=== PATIENT | female | born 1970 | race Hispanic/Latino ===

== ENCOUNTER 2019-07-13 03:28 | Emergency (ER) | payer OTHER ==
[2019-07-13 03:54] LABS: HCG,QUAL RESULT NEGATIVE (NEGATIVE)
[2019-07-13 03:55] LABS: APPEARANCE,URINE Clear (CLEAR); BILIRUBIN,URINE Negative (NEGATIVE); COLOR,URINE Yellow (YELLOW); GLUCOSE, URINE (UA) Negative (NEGATIVE); KETONES,URINE Negative (NEGATIVE); LEUKOCYTE ESTERASE ,URINE Negative (NEGATIVE); NITRATE,URINE Negative (NEGATIVE); OCCULT BLOOD,URINE Trace (NEGATIVE); PROTEIN,URINE Negative (NEGATIVE); UROBILINOGEN,URINE 0.2 mg/dL (0.2-1.0)
[2019-07-13 04:05] LABS: BACTERIA,URINE None Seen /HPF (None Seen); RBC,URINE 0-1 /HPF (0-1); WBC,URINE None Seen /HPF (0-1)
[2019-07-13 04:06] LABS: SQUAMOUS EPITHELIAL CELL,UR Rare /HPF (0-2)
[2019-07-13] MEDS ORDERED: ONDANSETRON HCL 4 MG/2 ML VIAL ONE (04:15)
[2019-07-13 04:16] LABS: BASOPHILS % (AUTO) 0.3 % (0.0-5.0); EOSINOPHILS % (AUTO) 1.1 % (0.0-8.0); HEMATOCRIT 38.1 % (36-48); LYMPHOCYTES % (AUTO) 24.3 % (21.0-51.0); MEAN CORPUSCULAR HEMOGLOBIN 27.2 pg (27.0-33.0); MEAN CORPUSCULAR HGB CONC 32.3 g/dL (32.0-36.0); MEAN CORPUSCULAR VOLUME 84.3 fL (79-99); MONOCYTES % (AUTO) 6.3 % (3.0-13.0); NEUTROPHILS % (AUTO) 67.6 % (40.0-77.0); PLATELET COUNT (AUTO) 314 K/uL (130-400); RED BLOOD CELL COUNT(AUTO) 4.52 MIL/uL (4.00-5.50); RED CELL DISTRIBUTION WIDTH 15.9 % (11.0-15.5); WHITE BLOOD COUNT (AUTO) 9.4 K/uL (4.8-10.8)
[2019-07-13] MEDS ORDERED: SODIUM CHLORIDE 0.9% 1000ML 1,000 ML IV ONE (04:16)
[2019-07-13] MEDS ORDERED: FAMOTIDINE/PF 20 MG/2 ML VIAL IV ONE (04:16)
[2019-07-13 04:29] LABS: CREATININE 0.8 mg/dL (0.5-1.5); POTASSIUM 3.9 mmol/L (3.5-5.1)
[2019-07-13 04:33] LABS: ALBUMIN 3.5 g/dL (3.5-5.0); BILIRUBIN,TOTAL 0.4 mg/dL (0.2-1.0); TOTAL PROTEIN, SERUM 7.8 g/dL (6.0-8.3)
[2019-07-13] MEDS ORDERED: METOCLOPRAMIDE 10 MG/2 ML VIAL ONE (05:42)
[2019-07-13] MEDS ORDERED: DiphenhydrAMINE HCL 50 MG/ML VIAL ONE (05:42)
[2019-07-13] MEDS ORDERED: MAG HYDROX/AL HYDROX/SIMETH ES 30 ML SUSP UDCUP ONE (05:42)
[2019-07-13] MEDS ORDERED: LIDOCAINE HCL 2% VISCOUS 15 ML UDCUP ONE (05:42)
== END 2019-07-13 06:11 | disposition home or self-care (01) ==
LOC: EDH 03:28
DX: K80.20 Calculus of gallbladder without cholecystitis without obstruction (principal); K29.70 Gastritis, unspecified, without bleeding
CPT/HCPCS: 36415; 76705; 80053; 81001; 81025; 83690; 85025; 96361; 96374; 96375; 99285; J1200; J2405; J2765; J3490; J7030

== ENCOUNTER → 2022-02-15 | Outpatient (CLI) | payer MEDICAID | END | disposition home or self-care (01) | LOC: SHCH 15:33 | PROVIDERS: ATTEND Internal Medicine Cardiovascular Disease | DX: I08.0 Rheumatic disorders of both mitral and aortic valves (principal) | CPT/HCPCS: 93306 ==

== ENCOUNTER 2022-12-16 21:43 | Emergency (ER) | payer OTHER ==
[~2022-12-16] VITALS: Ht 157.5 cm; Wt 72.6 kg
[2022-12-17] MEDS ORDERED: IBUP-1493 PO (00:26)
[2022-12-17] MEDS ORDERED: CYCL-309 PO (00:26)
[2022-12-17 00:28] VITALS: BP 142/74
== END 2022-12-17 00:33 | disposition home or self-care (01) ==
LOC: EDH 21:43
DX: M54.2 Cervicalgia (principal); V89.2XXA Person injured in unspecified motor-vehicle accident, traffic, initial encounter; Y93.89 Activity, other specified; Y92.89 Other specified places as the place of occurrence of the external cause; Y99.8 Other external cause status
CPT/HCPCS: 71045; 72125; 84484; 93005

== ENCOUNTER 2024-12-09 17:51 | Emergency (ER) | payer BC ==
[~2024-12-09] VITALS: Ht 154.9 cm; Wt 90.7 kg
[~2024-12-09 17:51] MED LIST: CYCL-309 PO; IBUP-1493 PO
--- NOTE | 2024-12-09 18:05 | ERN ---
ED Note History of Present Illness Stated Complaint: OTHER Chief Complaint: Skin Rash/Abscess Time Seen by MD: 17:57 Time Seen by Midlevel: 18:00 Dictation: Ms. Cole is a 54 year old female with no reported chronic health issues who presented to the Emergency Department this evening for evaluation of rash. Sh ereports nonblanching purpuric rash to bilateral upper and lower extremities x 1 week. She states that she saw her PCP, Dr. Noe Nicholas, on Monday and had some lab tests performed at [facility]; results pending. She states she called her PCP's office today because she was experiencing dizziness/lightheadedness. She states that she was unable to get a hold of anyone in the office. She also complains of pain, warmth, and increased redness to an area right lower leg/ankle. She has no open wound/drainage. She denies fever, chills, shortness of breath, cough, chest pain, palpitations, edema, abdominal pain, nausea, vomiting, hematemesis, constipation, diarrhea, melena, hematochezia, dysuria, headache, neck stiffness, visions changes, or focal weakness/paresthesia Allergies: Coded Allergies: No Known Drug Allergies (Unverified Allergy, Unknown, 07/13/19) Home Meds Active Scripts Cephalexin (Cephalexin) 500 Mg Tablet, 1 TAB PO BID for 7 Days, #14 TAB 0 Refills Prov:BING MENEZES NP 12/09/24 Cyclobenzaprine HCl (Cyclobenzaprine HCl) 10 Mg Tablet, 10 MG PO TIDP PRN for PAIN, #30 TAB Prov:GONZALEZ RODRIGUEZ MD 12/17/22 Ibuprofen (Motrin/Advil) 800 Mg Tab, 800 MG PO TID, #30 TAB Prov:GONZALEZ RODRIGUEZ MD 12/17/22 Past Medical History Past Medical History: No Pertinent History Surgical History: None PSYCH History: no pertinent psych hx Family History: Negative Social History: Negative, Lives with family History: Not Applicable RN Note Reviewed/Agreed w/PFSH: Yes Review of System Dictation REVIEW OF SYSTEMS: CONSTITUTIONAL: Patient denies fevers, chills, sweats and weight changes. EYES: Patient denies any visual symptoms. EARS, NOSE, AND THROAT: No difficulties with hearing. No symptoms of rhinitis or sore throat. CARDIOVASCULAR: Patient denies chest pains, palpitations, orthopnea and paroxysmal nocturnal dyspnea. RESPIRATORY: No dyspnea on exertion, no wheezing or cough. GI: No nausea, vomiting, diarrhea, constipation, abdominal pain, hematochezia or melena. : No urinary hesitancy or dribbling. No nocturia or urinary frequency. No abnormal urethral discharge. MUSCULOSKELETAL: No myalgias or arthralgias. NEUROLOGIC: No chronic headaches, no seizures. Patient denies numbness, tingling or weakness. Reports dizziness/lightheadedness. She denies stiff neck, vision changes, photophobia PSYCHIATRIC: Patient denies problems with mood disturbance. No problems with anxiety. ENDOCRINE: No excessive urination or excessive thirst. DERMATOLOGIC: Reports non raised, red, spotty" rash to bilateral upper and lo wer extremities x1 week. She now reports larger of redness to right lower leg/ankle which is painful and warm to touch. She denies open wounds/drainage. Initial Vital Sign VS Vital Signs Date Time Temp Pulse Resp B/P (MAP) Pulse Ox O2 Delivery O2 Flow Rate FiO2 12/09/24 18:00 98.2 82 16 163/81 Room Air 0 12/09/24 19:42 100 21 Physical Exam Dictation Vital signs: Reviewed. Constitutional: No acute distress. Non-toxic appearing. Head/Face: Normocephalic, atraumatic. Eyes: Periorbital areas with no swelling, redness, or edema. Lids and lashes are normal. Conjunctival injection is absent. Sclera anicteric. Pupils equal, round, reactive to light. ENT: Pinnas intact and no signs of trauma or erythema. Ear canals clear and no discharge. TMs no erythema. No nasal discharge or bleeding noted. Oropharynx with no exudate, redness, swelling, masses, exudates, or evidence of obstruction. Uvula midline. Mucous membranes moist. Neck: Trachea midline, no masses palpated, and no cervical lymphadenopathy. No swelling. Supple, full range of motion. Chest/Axilla: No tenderness, no crepitus, no paradoxical movement, no retractions. Cardiovascular: Regular rate, regular rhythm, no murmur, no gallops. Symmetric pulses. No peripheral edema. Respiratory: Respirations even and unlabored. Lung sounds clear; no wheezes, rales or rhonchi. Gastrointestinal: Inspection is normal. No distention is appreciated. Bowel sounds are normal. No mass or organomegaly . There is no tenderness. No rebound. No rigidity. No voluntary or involuntary guarding. No Chapman's sign. Neurological: Normal speech, gross motor function intact, gross sensory function intact. No focal weakness/Paresthesia. Musculoskeletal/Extremities: All extremities have full range of motion, no pain or tenderness on palpation. Symmetric pulses. Integumentary: Intact; no open wounds or drainage. Skin is normal color, warm and dry. Cap refill less than 2 seconds. She has a nonblanching purpuric rash to bilateral upper and lower extremities. There is a 2.0 cm area of localized erythema, warmth, and tenderness to right lower leg/ankle without drainage or fluctuance. Results (Laboratory/Radiology) Laboratory/Radiology Laboratory Tests Test 12/09/24 18:17 12/09/24 19:16 12/09/24 19:30 White Blood Count 9.6 K/uL (4.8-10.8) Red Blood Count 4.73 MIL/uL (4.00-5.50) Hemoglobin 14.1 g/dL (12.0-16.0) Hematocrit 42.2 % (36-48) Mean Corpuscular Volume 89.2 fL (79-99) Mean Corpuscular Hemoglobin 29.8 pg (27.0-33.0) Mean Corpuscular Hemoglobin Concent 33.4 g/dL (32.0-36.0) Red Cell Distribution Width 12.6 % (11.0-15.5) Platelet Count 360 K/uL (130-400) Mean Platelet Volume 8.7 fL (7.5-10.5) Immature Granulocyte % (Auto) 0.3 % (0-1) Neutrophils (%) (Auto) 57.8 % (40.0-77.0) Lymphocytes (%) (Auto) 33.3 % (21.0-51.0) Monocytes (%) (Auto) 6.5 % (3.0-13.0) Eosinophils (%) (Auto) 1.7 % (0.0-8.0) Basophils (%) (Auto) 0.4 % (0.0-5.0) Neutrophils # (Auto) 5.6 K/uL (1.8-7.7) Lymphocytes # (Auto) 3.2 K/uL (1.0-4.8) Monocytes # (Auto) 0.6 K/uL (0.1-1.0) Eosinophils # (Auto) 0.16 K/uL (0.00-0.70) Basophils # (Auto) 0.04 K/uL (0.00-0.20) Absolute Immature Granulocyte (auto 0.03 K/uL (0-1) Nucleated Red Blood Cells 0.0 % (0.0-0.19) Prothrombin Time 10.1 SEC (9.6-11.6) Prothromb Time International Ratio 0.95 (0.85-1.15) Activated Partial Thromboplast Time 28.5 SEC (26.3-35.5) Sodium Level 138 mmol/L (136-145) Potassium Level 4.0 mmol/L (3.5-5.1) Chloride Level 101 mmol/L (101-111) Carbon Dioxide Level 31 mmol/L (21-32) Blood Urea Nitrogen 14 mg/dL (7-18) Creatinine 0.8 mg/dL (0.5-1.0) Glomerular Filtration Rate Calc 87 mL/min (>90) Random Glucose 99 mg/dL (70-105) Lactic Acid Level 1.2 mmol/L (0.8-2.5) Total Calcium 9.4 mg/dL (8.5-10.1) Total Bilirubin 0.5 mg/dL (0.2-1.0) Direct Bilirubin 0.1 mg/dL (0.0-0.3) Aspartate Amino Transf (AST/SGOT) 32 U/L (10-37) Alanine Aminotransferase (ALT/SGPT) 46 U/L (12-78) Alkaline Phosphatase 133 U/L (50-136) Total Protein 8.2 g/dL (6.0-8.3) Albumin 3.9 g/dL (3.5-5.0) Influenza Type A Antigen Negative For Type A Influenza Type B Antigen Negative For Type B SARS-CoV-2, RNA, NAAT NEGATIVE SARS CoV-2 Urine Color LIGHT-YELLOW (YELLOW) Urine Appearance CLEAR (CLEAR) Urine pH 5.0 (5.0-8.0) Urine Specific [place] 1.020 (1.001-1.031) Urine Protein NEGATIVE mg/dL (NEGATIVE) Urine Glucose (UA) NEGATIVE mg/dL (NEGATIVE) Urine Ketones NEGATIVE mg/dL (NEGATIVE) Urine Occult Blood NEGATIVE (NEGATIVE) Urine Nitrate NEGATIVE (NEGATIVE) Urine Bilirubin NEGATIVE mg/dL (NEGATIVE) Urine Urobilinogen 0.2 mg/dL (0.2-1.0) Urine Leukocyte Esterase NEGATIVE [place]/uL Labs Reviewed?: Yes EKG Comment: EKG Interpretation: Time Reviewed: 1931 Ventricular rate: 73 bpm CA Interval:162 ms QRS duration: [address] segment elevation or depression. Clinical impression: Sinus rhythm EKG Reviewed and interpreted by: Dr. Bryon Noriega ED Course ED Course Orders Procedure Category Date Status Time Cbc With Differential LAB 12/09/24 Complete 18:03 Basic Metabolic Panel LAB 12/09/24 Complete 18:03 Hepatic Function Panel LAB 12/09/24 Complete 18:03 Influenza Type A & B, LAB 12/09/24 Complete Rapid 18:03 Covid Rna Naat LAB 12/09/24 Complete 18:03 Urinalysis Profile LAB 12/09/24 Complete 18:03 Cephalexin 500 Mg PHA 12/09/24 Complete Capsule (Keflex 500 Mg 18:30 Pt And Ptt LAB 12/09/24 Complete 18:07 Blood Cult LISETH 12/09/24 In Process 18:07 Lactic Acid LAB 12/09/24 Complete 18:09 12 Lead Ekg Tracing- EKG 12/09/24 Complete Technical 19:25 Current Medications Medications (Trade) Dose Ordered Sig/Loly Route PRN Reason Start Time Stop Time Status Last Admin Dose Admin Cephalexin (Keflex 500 MG CAPS) 500 mg ONCE ONCE PO 12/09/24 18:30 12/09/24 18:31 DC 12/09/24 19:20 Vital Signs Date Time Temp Pulse Resp B/P (MAP) Pulse Ox O2 Delivery O2 Flow Rate FiO2 12/09/24 19:42 98.1 73 18 133/83 100 Room Air* 0 21 12/09/24 18:00 98.2 82 16 163/81 Room Air 0 Uneventful ED course. Vital signs are stable; afebrile and normotensive with room air SpO2 100%. No angioedema. No respiratory distress. Twelve lead EKG reflects a sinus rhythm without ST elevation or depression. Laboratory findings as noted below. No elevation of WBCs or lactic acid. H&H are stable. No electrolyte derangement coagulopathies. UA is clear. COVID and influenza are negative. Patient received initial dose of cephalexin. Findings were discussed with patient and all questions were answered. Medical Decision Making MDM MDM: Differential diagnosis: meningitis, viral illness, vasculitis, purpura, cellulitis Rationale: Tests considered and ordered secondary to shared decision making include: lab, EKG Previous outside records reviewed: Old ER visits. Risk of complication and/or morbidity or mortality of patient management: None Medications-Per medication reconciliation Need for hospitalization: Patient does not meet criteria for hospitalization. Need for emergency major/minor surgery: No There are no social concerns with this patient. Prescription drug management: Cephalexin Prescriptions will include symptomatic care Patient's prior external medical records from other ER visits were reviewed by me as indicated. Prior testing and results from previous visits were reviewed. Prior tests were taken into account with medical decision making and resource utilization, independent historian/historians were used to obtain complete medical history. I independently interpreted the test that were performed, results were reviewed by me and considered findings on radiology if ordered. Medical management and examination interpretation discussions were had by me with other qualified healthcare professionals as indicated for the patient's care. DX & DISP Disposition: Discharge Departure Impression: Primary Impression: Purpura Additional Impression: Cellulitis Condition: Stable Scripts Cephalexin (Cephalexin) 500 Mg Tablet 1 TAB PO BID for 7 Days, #14 TAB 0 Refills Prov: BING MENEZES NP 12/09/24 Additional Instructions: Get plenty of rest. Drink plenty of fluids continue Cephalexin BID x 7 days. Follow up with your PCP on Monday as previously scheduled. Return to Emergency Department for any worsening of symptoms or concerns. Referrals: NOE NICHOLAS MD I performed a substantive portion of the visit. I have reviewed and personally made and approve the management plan that is documented in the notes by myself with YVONNE/resident. I acknowledged full responsibility for the patient's management plan. BING MENEZES NP Dec 09, 2024 18:05 POLINA NORIEGA DO Dec 10, 2024 00:01
[2024-12-09 18:33] LABS: BASOPHILS # (AUTO) 0.04 K/uL (0.00-0.20); BASOPHILS % (AUTO) 0.4 % (0.0-5.0); EOSINOPHILS # (AUTO) 0.16 K/uL (0.00-0.70); EOSINOPHILS % (AUTO) 1.7 % (0.0-8.0); HEMATOCRIT 42.2 % (36-48); IMMATURE GRANULOCYTE ABSOLUTE 0.03 K/uL (0-1); LYMPHOCYTES # (AUTO) 3.2 K/uL (1.0-4.8); LYMPHOCYTES % (AUTO) 33.3 % (21.0-51.0); MEAN CORPUSCULAR HEMOGLOBIN 29.8 pg (27.0-33.0); MEAN CORPUSCULAR HGB CONC 33.4 g/dL (32.0-36.0); MEAN CORPUSCULAR VOLUME 89.2 fL (79-99); MONOCYTES # (AUTO) 0.6 K/uL (0.1-1.0); MONOCYTES % (AUTO) 6.5 % (3.0-13.0); NEUTROPHILS # (AUTO) 5.6 K/uL (1.8-7.7); NEUTROPHILS % (AUTO) 57.8 % (40.0-77.0); PLATELET COUNT (AUTO) 360 K/uL (130-400); RED BLOOD CELL COUNT(AUTO) 4.73 MIL/uL (4.00-5.50); RED CELL DISTRIBUTION WIDTH 12.6 % (11.0-15.5); WHITE BLOOD COUNT (AUTO) 9.6 K/uL (4.8-10.8)
[2024-12-09 18:42] LABS: CREATININE 0.8 mg/dL (0.5-1.0)
[2024-12-09 18:44] LABS: INR 0.95 (0.85-1.15); PROTHROMBIN TIME 10.1 SEC (9.6-11.6)
[2024-12-09 18:45] LABS: PARTIAL THROMBOPLASTIN TIME 28.5 SEC (26.3-35.5)
[2024-12-09 18:47] LABS: ALBUMIN 3.9 g/dL (3.5-5.0); BILIRUBIN,DIRECT 0.1 mg/dL (0.0-0.3); BILIRUBIN,TOTAL 0.5 mg/dL (0.2-1.0); TOTAL PROTEIN, SERUM 8.2 g/dL (6.0-8.3)
[2024-12-09] MEDS: cePHALexin 500 MG CAPSULE PO ONE (19:20)
--- NOTE | 2024-12-09 19:29 | NUR ---
Note undone in EDM - 12/09/24 at 1945 by JOB pt arrived with rash to bilat arms and legs, rash is red and itching as per pt. pt went to pcp was given alegra prescription. pt voiced rash getting worst. no past med hx as per pt. no change in detergent. no bleeding gums as per pt.
[2024-12-09 19:37] LABS: APPEARANCE,URINE CLEAR (CLEAR); BILIRUBIN,URINE NEGATIVE (NEGATIVE); COLOR,URINE LIGHT-YELLOW (YELLOW); GLUCOSE, URINE (UA) NEGATIVE (NEGATIVE); KETONES,URINE NEGATIVE (NEGATIVE); LEUKOCYTE ESTERASE ,URINE NEGATIVE Leu/uL (NEGATIVE); NITRATE,URINE NEGATIVE (NEGATIVE); OCCULT BLOOD,URINE NEGATIVE (NEGATIVE); PROTEIN,URINE NEGATIVE (NEGATIVE); UROBILINOGEN,URINE 0.2 mg/dL (0.2-1.0)
--- NOTE | 2024-12-09 19:37 | EKG ---
[facility] Test Date: 2024-12-09 Test Time: 19:32:55 Pat Name: LORI GUNDERSON Department: [facility] Room: Gender: F Blemish Remover: [id number] : 1970 Requested By: BING MENEZES Order Number: [id number] Reading MD: Micheal Estrada Measurements Intervals [place] Rate: 73 P: 34 ID: [id number] QRS: 15 QRSD: 86 T: 35 QT: 398 QTc: 438 Interpretive Statements Sinus rhythm Nonspecific STT abnormality Compared to ECG 12/16/2022 22:58:47 No significant changes Electronically Signed On 12-10-2024 18:11:22 CDT by Micheal Estrada Please click the below link to view image of tracing.
[2024-12-09 19:38] LABS: ADD UA MICROSCOPIC NO
[2024-12-09 19:42] VITALS: BP 133/83; PULSE 73; RESP 18; TEMP 98.1; O2SAT 100
--- NOTE | 2024-12-09 19:45 | NUR ---
pt arrived to ed c/o rash to bilat legs and arms. pain to R lower leg at rash site. pt did voice taking allerga as prescribed by pcp.
[2024-12-09] MEDS ORDERED: CEPH500T PO (20:00)
[2024-12-09 20:05] LABS: SARS-CoV-2, RNA, NAAT NEGATIVE SARS CoV-2 (NEGATIVE)
[2024-12-09 20:11] LABS: INFLUENZA TYPE A Negative For Type A (NEGATIVE); INFLUENZA TYPE B Negative For Type B (NEGATIVE)
== END 2024-12-09 20:19 | disposition home or self-care (01) ==
LOC: EDH 17:51
DX: D69.2 Other nonthrombocytopenic purpura (principal); L03.116 Cellulitis of left lower limb; L03.115 Cellulitis of right lower limb; Z79.1 Long term (current) use of non-steroidal anti-inflammatories (NSAID); Z20.822 Contact with and (suspected) exposure to COVID-19
CPT/HCPCS: 36415; 80048; 80076; 81003; 83605; 85025; 85610; 85730; 87040; 87635; 87804; 93005; 99284